=== PATIENT | female | born 1970 | race Caucasian/White ===

== ENCOUNTER 2017-02-16 08:13 | Emergency (ER) | payer OTHER ==
[2017-02-16] MEDS ORDERED: LACTATED RINGERS 1,000 ML ONE (09:13)
[2017-02-16 09:18] LABS: ABSOLUTE NEUTROPHIL COUNT 5.6 K/mm3 (1.8-7.7); BASO % 0.3 % (0.2-1.0); HEMATOCRIT 43.3 % (37.0-47.0); HEMOGLOBIN 14.3 gm/l (12.0-16.0); IMM NEUT% 0.4 % (0-1); LYMPH # 0.8 (1.0-4.8); LYMPH % 12.3 % (15-45); MEAN CELL VOLUME 93.7 fl (81.0-99.0); MEAN PLATELET VOLUME 10.7 fl (7.4-10.4); MONO # 0.3 (0.0-0.8); MONO % 4.8 % (4-12); NEUT % 82.2 % (43-75); PLATELET COUNT 239 K/mm3 (130-400); RED CELL DISTRIBUTION WIDTH 11.8 % (11.5-14.5)
[2017-02-16 09:36] LABS: ALB/GLOB RATIO 1.7 (>1.0); ALBUMIN 4.6 gm/dL (3.5-5.7); CALCIUM 9.6 mg/dL (8.6-10.3)
== END 2017-02-16 10:31 | disposition home or self-care (01) ==
LOC: ED 08:13
DX: R00.2 Palpitations (principal); E03.9 Hypothyroidism, unspecified; F17.210 Nicotine dependence, cigarettes, uncomplicated